=== PATIENT | male | born 1940 | race Caucasian/White ===

== ENCOUNTER 2021-06-14 11:42 | Outpatient (CLI) | payer MEDICARE, BC, SELFPAY ==
[2021-06-14 12:25] LABS: Absolute Lymphocyte Count 2.01 X10^3/uL (0.83-4.51); Absolute Neutrophil Count 3.6 X10^3/uL (2.0-7.7); Basophil# 0.02 X10^3/uL; Basophil% 0.3 % (0-1); Eosinophil# 0.23 X10^3/uL; Eosinophils% 3.5 % (0-5); Hematocrit 42.5 % (40-54); Hemoglobin 13.8 g/dL (13.0-16.5); Lymphocyte # 2.01 X10^3/ul (0.83-4.51); Lymphocyte % 30.8 % (19-41); Mean Corp Hgb Conc 32.5 g/dL (32-36); Mean Corpuscular Hgb 29.3 pg (27.0-32.0); Mean Corpuscular Volume 90.2 fL (80-94); Mean Platelet Vol. 10.2 fl (6.2-12.0); Monocyte% 9.2 % (0-10); NRBC Flagged by Analyzer 0 % (0-5); Neutrophil # 3.63 X10^3/uL (2.7-7.7); Neutrophil % 55.7 % (47-70); Platelet Count 317 K/mm3 (150-450); RBC Distribution Width CV 13.8 % (11.6-14.6); RBC Distribution Width SD 46.1 fl (35.1-43.9); Red Blood Count 4.71 M/mm3 (4.6-6.2); White Blood Count 6.5 K/mm3 (4.4-11.0)
[2021-06-14 13:14] LABS: AST(SGOT) 25 U/L (15-37); Alanine Aminotransfer ALT/SGPT 35 U/L (16-61); Albumin, Serum 3.7 g/dL (3.2-5.0); Alkaline Phosphatase 109 U/L (45-117); Anion Gap 4 (5-15); BUN 21 mg/dL (7-18); BUN/Creat Ratio 21.3 RATIO (10-20); Calcium,Total 9.1 mg/dL (8.5-10.1); Chloride 106 mmol/L (98-107); Creatinine, Serum 0.98 mg/dL (0.70-1.30); EST Glomerular Filtration Rate 78 mL/min (>60); Est Glom Filt Rate - Afr Amer 94 mL/min (>60); Globulin 3.8 g/dL (2.2-4.2); Glucose 103 mg/dL (74-106); Potassium 4.3 mmol/L (3.5-5.1); Protein, Total 7.5 g/dL (6.4-8.2); Sodium Level 138 mmol/L (136-145); Thyroid Stim Hormone (TSH) 1.07 uIU/mL (0.358-3.74)
[2021-06-14 13:36] LABS: Hepatitis C Antibody Non-Reactive (Nonreactive); Syphilis Antibodies Non-reactive; Vitamin B12 322 pg/mL (211-911); Vitamin D,25 Hydroxy 25.5 ng/mL
== END 2021-06-14 23:59 | disposition home or self-care (01) ==
PROVIDERS: PCP Family Medicine Geriatric Medicine; Visit Provider Family Medicine Geriatric Medicine
DX: E55.9 Vitamin D deficiency, unspecified (principal); G30.9 Alzheimer's disease, unspecified; R53.83 Other fatigue; Z13.89 Encounter for screening for other disorder
CPT/HCPCS: 36415; 80053; 82306; 82607; 82746; 84443; 85025; 86780; 86803

== ENCOUNTER 2021-06-17 14:14 | Outpatient (CLI) | payer MEDICARE, BC, SELFPAY ==
[2021-06-17 15:24] LABS: Homocysteine 5.3 umol/L (3.2-10.7)
[2021-06-23 09:40] LABS: Methylmalonic Acid Bld 324 nmol/L (0-378)
== END 2021-06-17 23:59 | disposition home or self-care (01) ==
LOC: POLAB3 14:15
PROVIDERS: PCP Family Medicine Geriatric Medicine; Visit Provider Family Medicine Geriatric Medicine
DX: D52.9 Folate deficiency anemia, unspecified (principal)
CPT/HCPCS: 36415; 83090; 83921

== ENCOUNTER 2021-06-25 08:49 | Outpatient (CLI) | payer MEDICARE, BC, SELFPAY ==
--- NOTE | 2021-06-25 08:54 | US_ITS ---
PROCEDURES: ULTRASOUND AORTA REASON FOR EXAM: Male, 81 years old. Screening TECHNIQUE: Ultrasound evaluation of the aorta was performed with real-time and static alvarado-scale imaging. COMPARISON: None. FINDINGS: There is no elongation or tortuosity of the abdominal aorta. Aorta measures: Proximal 2.0 cm. Middle 1.5 cm. Distal 1.8 cm. Aorta measure transversely: Proximal 2.3 cm. Middle 2.0 cm. Distal 1.5 cm. Right iliac artery measures: 1.0 cm. Right iliac artery measure transversely: 1.0 cm. Left iliac artery measures: 1.0 cm. Left iliac artery measure transversely: 1.0 cm. There is no demonstrated aneurysm.. US/Aorta IMPRESSION: Normal abdominal aorta. Electronically Signed: Jac Winkler MD at 15:05 EDT ,
== END 2021-06-25 23:59 | disposition home or self-care (01) ==
LOC: US 08:51
PROVIDERS: PCP Family Medicine Geriatric Medicine; Referring Provider Family Medicine Geriatric Medicine; Visit Provider Family Medicine Geriatric Medicine
DX: Z00.00 Encounter for general adult medical examination without abnormal findings (principal)
CPT/HCPCS: 76775

== ENCOUNTER 2021-06-27 14:56 | Outpatient (CLI) | payer MEDICARE, BC, SELFPAY ==
--- NOTE | 2021-06-27 15:06 | CT_ITS ---
STUDY: CT BRAIN WITHOUT CONTRAST REASON FOR EXAM: Male, 81 years old. [facility] RADIATION DOSAGE (If Supplied By Facility): CTDIvol = ( 44.99 ) mGy, DLP = ( 745.49 ) mGycm TECHNIQUE: Transaxial CT imaging of the brain was performed without administration of intravenous contrast material. Individualized dose optimization techniques were used for this CT. COMPARISON: No relevant priors. FINDINGS: Normal soft tissue structures. Normal calvarium. Normal size ventricles and extra-axial spaces for the patient''s age. Normal white matter tracts of the cerebral hemispheres. Normal basal ganglia and thalami. Normal brainstem. Normal cerebellum. There is no intracranial hemorrhage. There are no findings of an acute ischemic infarction. Normal visualized paranasal sinuses. CT/Brain/Head without Contrast IMPRESSION: Normal unenhanced CT scan of the brain. Electronically Signed: Tyler Yadav MD at 15:54 EDT ,
--- NOTE | 2021-06-27 15:19 | CT_ITS ---
STUDY: CT CHEST WITHOUT CONTRAST- LOW DOSE SCREENING PROTOCOL REASON FOR EXAM: Male, 81 years old. pack per year history. No current symptoms of lung cancer or pulmonary infection. Shared decision-making with referring PCP documented in patient''s record. RADIATION DOSAGE (If Supplied By Facility): CTDIvol = ( 3.02 ) mGy, DLP = ( 85.35 ) mGycm TECHNIQUE: Low dose screening CT examination performed from the base of the neck to the upper abdomen. Sagittal and coronal reformatted images performed. Sagittal and coronal MIP images provided. The measurements provided are average, rounded measurements per ACR guidelines. COMPARISON: None. FINDINGS: The lungs are normal. There is no demonstrated pleural abnormality. Normal heart and pericardium. There are calcifications of the coronary arteries. Normal mediastinum. Normal hilar regions. Normal unenhanced pulmonary arteries. Normal aorta arch and descending thoracic aorta. Normal osseous structures. There is no demonstrated abnormality of the visualized upper abdomen. CT/Low Dose CT Lung Screening IMPRESSION: 1. No significant indeterminate incidental findings requiring additional imaging. 2. Incidental findings include calcified coronary plaque. ASSESSMENT CATEGORY: LungRADS 1 - Negative. Continue annual screening with LDCT in 12 months, per established ACR guidelines. Electronically Signed: Tyler Yadav MD at 15:59 EDT ,
== END 2021-06-27 23:59 | disposition home or self-care (01) ==
PROVIDERS: PCP Family Medicine Geriatric Medicine; Visit Provider Family Medicine Geriatric Medicine
DX: G30.9 Alzheimer's disease, unspecified (principal); F17.210 Nicotine dependence, cigarettes, uncomplicated
CPT/HCPCS: 70450; 71271

== ENCOUNTER → 2021-12-03 | Outpatient (CLI) | payer MEDICARE, BC, SELFPAY ==
--- NOTE | 2021-12-03 16:36 | MRI_ITS ---
STUDY: MRI BRAIN WITHOUT CONTRAST REASON FOR EXAM: Male, 81 years old patient with dementia. TECHNIQUE: Standardized multiplanar fat and water weighted pulse sequences were obtained. COMPARISON: CT of the head dated 06/27/2021. FINDINGS: There is mild cerebral atrophy with widening of the extra-axial spaces and ventricular dilatation. There are a limited number of small white matter hyperintensities, distributed throughout the deep white matter tracts of the cerebral hemispheres, consistent with mild chronic white matter ischemic changes. There is no evidence for recent intracranial ischemia or other cause of cytotoxic edema on diffusion weighted imaging (DWI). Normal T2* images of the brain without demonstrated susceptibility artifact. There is no demonstrated hemosiderin stain. Normal bilateral basal ganglia. Normal thalami. There is no extra-axial fluid accumulation. Normal flow voids within the major intracranial circulation suggesting patency by spin echo criteria. Normal sella turcica, pituitary gland, infundibular stalk, optic chiasm and hypothalamus. Normal tectal plate and pineal gland. Normal midbrain, nadia and medulla. Normal cerebellum. There are large basal cisterns. Normal bilateral temporal bones. Normal bilateral internal auditory canals. No demonstrated orbital abnormality, within the constraints of a routine brain study. Normal visualized paranasal sinuses. Normal calvarium and skull base. Normal visualized soft tissue structures. Normal visualized upper cervical spine. MRI/Brain without Contrast IMPRESSION: 1. Involutional changes of the brain, as described above. 2. No MR evidence for acute infarct or mass. Electronically Signed: Camelia Wong MD at 4:57 EDT ,
== END | disposition home or self-care (01) ==
LOC: MRI 16:36
PROVIDERS: PCP Family Medicine Geriatric Medicine; Visit Provider Psychiatry & Neurology Neurology
DX: F03.90 Unspecified dementia, unspecified severity, without behavioral disturbance, psychotic disturbance, mood disturbance, and anxiety (principal)
CPT/HCPCS: 70551

== ENCOUNTER → 2023-04-28 | Outpatient (CLI) | payer MEDICARE, BC, SELFPAY ==
[2023-04-28 16:13] LABS: AST(SGOT) 25 U/L (15-37); Alanine Aminotransfer ALT/SGPT 39 U/L (16-61); Albumin, Serum 3.8 g/dL (3.2-5.0); Alkaline Phosphatase 99 U/L (45-117); Bilirubin, Direct 0.14 mg/dL (0.00-0.30); Cholesterol 208 mg/dL (200); Globulin 3.7 g/dL (2.2-4.2); High Density Lipoprotein 43 mg/dL; PSA,Total- Diagnostic 0.08 ng/mL (0.0-4.0); Protein, Total 7.5 g/dL (6.4-8.2); Triglycerides 196 mg/dL; Very Low Density Lipoprotein 39 mg/dL (5-40)
[2023-04-28 16:25] LABS: Anion Gap 2 (5-15); BUN 22 mg/dL (7-18); BUN/Creat Ratio 26.5 RATIO (10-20); Chloride 103 mmol/L (98-107); Creatinine, Serum 0.83 mg/dL (0.70-1.30); EST Glomerular Filtration Rate 94 mL/min (>60); Est Glom Filt Rate - Afr Amer 114 mL/min (>60); Glucose 90 mg/dL (74-106); Sodium Level 135 mmol/L (136-145)
[2023-05-01 13:08] LABS: Vitamin D 1,25-Dihydroxy 59.4 pg/mL (24.8-81.5)
[2023-05-03 17:07] LABS: Vitamin B1, Thiamine 130.9 nmol/L (66.5-200.0)
== END | disposition home or self-care (01) ==
LOC: BIMLAB 14:02
PROVIDERS: Psychiatry & Neurology Neurology; PCP Internal Medicine; Visit Provider Internal Medicine
DX: N40.0 Benign prostatic hyperplasia without lower urinary tract symptoms (principal); E55.9 Vitamin D deficiency, unspecified; Z13.6 Encounter for screening for cardiovascular disorders
CPT/HCPCS: 36415; 80048; 80061; 80076; 82652; 84153; 84425

== ENCOUNTER → 2023-12-21 | Outpatient (CLI) | payer MEDICARE, BC, SELFPAY ==
--- NOTE | 2023-12-21 15:11 | RAD_ITS ---
STUDY: X-RAY - RIGHT KNEE REASON FOR EXAM: Male, 83 years old. Fall. TECHNIQUE: 4 views of the right knee. COMPARISON: None. FINDINGS: Normal visualized distal femur. Normal visualized proximal fibula. There is a small benign exostosis/osteochondroma arising off the lateral aspect of the proximal tibial metaphysis. Normal proximal tibiofibular articulation. There is no demonstrated fracture. Normal medial femorotibial compartment. Normal lateral femorotibial compartment. Normal patellofemoral articulation. There is chondrocalcinosis of the medial and lateral menisci. The soft tissue structures are unremarkable. RAD/Knee 4 or More Views IMPRESSION: Small benign exostosis/osteochondroma arising off the lateral aspect of the proximal tibial metaphysis. 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 No demonstrated fracture. Electronically Signed: Dinesh Sweeney MD at 15:46 EDT ,
--- NOTE | 2023-12-21 15:11 | RAD_ITS ---
STUDY: X-RAY - RIGHT SHOULDER REASON FOR EXAM: Male, 83 years old. Fall TECHNIQUE: 4 views of the right shoulder. COMPARISON: None. FINDINGS: There is cortical irregularity and focal concavity at the greater tuberosity of the humeral head, suggestive of an impaction fracture. Normal glenohumeral articulation. 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 Normal acromion. The soft tissue structures are unremarkable. Normal visualized pulmonary apex. RAD/Shoulder min 2 Views IMPRESSION: Suspected impaction fracture at the greater tuberosity of the humeral head. Hypertrophic acromioclavicular arthrosis, with inferior osteophyte formation. Electronically Signed: Dinesh Sweeney MD at 15:42 EDT ,
== END | disposition home or self-care (01) ==
PROVIDERS: PCP Internal Medicine; Referring Provider Physician Assistant; Visit Provider Physician Assistant
DX: M11.261 Other chondrocalcinosis, right knee (principal); D16.21 Benign neoplasm of long bones of right lower limb; M19.011 Primary osteoarthritis, right shoulder; W19.XXXA Unspecified fall, initial encounter
CPT/HCPCS: 73030; 73564

== ENCOUNTER → 2024-02-02 | Outpatient (CLI) | payer MEDICARE, BC, SELFPAY ==
[2024-02-02 10:25] LABS: Hemoglobin 13.3 g/dL (13.0-16.5); Mean Corp Hgb Conc 31.7 g/dL (32-36); Mean Corpuscular Hgb 29.6 pg (27.0-32.0); Mean Corpuscular Volume 93.3 fL (80-94); Mean Platelet Vol. 11.1 fl (6.2-12.0); Platelet Count 276 K/mm3 (150-450); RBC Distribution Width CV 14.4 % (11.6-14.6); RBC Distribution Width SD 49.7 fl (35.1-43.9); White Blood Count 6.5 K/mm3 (4.4-11.0)
[2024-02-02 10:40] LABS: AST(SGOT) 17 U/L (15-37); Alanine Aminotransfer ALT/SGPT 29 U/L (16-61); Albumin, Serum 3.5 g/dL (3.2-5.0); Alkaline Phosphatase 91 U/L (45-117); Anion Gap 5 (5-15); BUN 21 mg/dL (7-18); BUN/Creat Ratio 20.6 RATIO (10-20); Calcium,Total 8.7 mg/dL (8.5-10.1); Chloride 108 mmol/L (98-107); Creatinine, Serum 1.02 mg/dL (0.70-1.30); EST Glomerular Filtration Rate 74 mL/min (>60); Est Glom Filt Rate - Afr Amer 90 mL/min (>60); Globulin 3.6 g/dL (2.2-4.2); Glucose 106 mg/dL (74-106); Potassium 3.8 mmol/L (3.5-5.1); Protein, Total 7.1 g/dL (6.4-8.2); Sodium Level 142 mmol/L (136-145)
[2024-02-02 10:44] LABS: Valproic Acid (Depakene) Level 60 ug/mL (50-100)
[2024-02-02 11:00] LABS: Cholesterol 218 mg/dL (200); High Density Lipoprotein 46 mg/dL; Triglycerides 132 mg/dL; Very Low Density Lipoprotein 26 mg/dL (5-40)
== END | disposition home or self-care (01) ==
LOC: MTLAB 08:37
PROVIDERS: Psychiatry & Neurology Neurology; PCP Internal Medicine; Referring Provider Internal Medicine; Visit Provider Internal Medicine
DX: G30.1 Alzheimer's disease with late onset (principal); F02.A0 Dementia in other diseases classified elsewhere, mild, without behavioral disturbance, psychotic disturbance, mood disturbance, and anxiety; Z13.6 Encounter for screening for cardiovascular disorders
CPT/HCPCS: 36415; 80053; 80061; 80164; 82140; 85027

== ENCOUNTER → 2024-11-14 | Outpatient (CLI) | payer MEDICARE, BC, SELFPAY ==
[2024-11-14 18:15] LABS: Valproic Acid (Depakene) Level 85 ug/mL (50-100)
[2024-11-14 18:17] LABS: Ammonia 24.2 umol/L (16-60)
== END | disposition home or self-care (01) ==
LOC: MTLAB 14:38
PROVIDERS: PCP Internal Medicine; Referring Provider Psychiatry & Neurology Neurology; Visit Provider Psychiatry & Neurology Neurology
DX: R45.1 Restlessness and agitation (principal)
CPT/HCPCS: 36415; 80164; 82140